=== PATIENT | male | born 2000 | race Caucasian/White ===

== ENCOUNTER 2021-12-31 08:45 | Outpatient (REF) | payer BC, SELFPAY ==
[2022-01-04 12:50] LABS: Calprotectin <50.0 mcg/g
[2022-01-04 16:05] LABS: Pancreatic Elastase, F >500 mcg/g
== END 2021-12-31 08:46 | disposition home or self-care (01) ==
LOC: LBN 08:45
DX: I10 Essential (primary) hypertension (principal); R19.7 Diarrhea, unspecified; E55.9 Vitamin D deficiency, unspecified; E78.5 Hyperlipidemia, unspecified
CPT/HCPCS: 84100; 87045; 87046; 82438; 82656; 83735; 83993; 84302

== ENCOUNTER 2022-01-05 10:32 | Outpatient (REF) | payer BC, SELFPAY ==
[2022-01-11 11:20] LABS: Chloride, F 26 mmol/L; Magnesium, F 40 mg/dL; Osmolality, F 582 mOsm/kg; Osmotic Gap, F 32 mOsm/kg; Phosphorus, F 55 mg/dL; Potassium, F 66 mmol/L; Sodium, F 63 mmol/L
== END 2022-01-05 10:33 | disposition home or self-care (01) ==
LOC: LBN 10:32
PROVIDERS: Visit Provider Internal Medicine Gastroenterology
DX: R19.7 Diarrhea, unspecified (principal)
CPT/HCPCS: 84100; 82438; 83735; 84302